=== PATIENT | female | born 1980 | race Caucasian/White ===

== ENCOUNTER 2018-02-12 12:04 | Inpatient (IN) | payer BC ==
[~2018-02-12] VITALS: Ht 172.7 cm; Wt 98.4 kg
--- NOTE | 2018-02-12 12:04 | NUR ---
Patient BIBA to bed 10.
[2018-02-12 12:09] VITALS: BP 142/103
--- NOTE | 2018-02-12 12:09 | NUR ---
REPORT GIVEN TO LINDSAY CEE
[2018-02-12] MEDS ORDERED: NACL 0.9% 1,000 ML IV ONE (12:15)
[2018-02-12] MEDS ORDERED: FLUMAZENIL 0.5 MG/5 ML VIAL IVP ONE (12:15)
--- NOTE | 2018-02-12 12:15 | NUR ---
PT. CAME IN VIA BLS DUE TO TAKING 20-30 XANAX AT HOME. PT. STATES " I TOOK TWO HANDFULLS OF XANAX BECAUSE IN TIRED, IM SICK AND MY DOESNT COME HOME". WHEN ASKED IF SHE WANTED TO TAKE HER LIFE PT. JUST RESPONDED " IM JUST TIRED " AND STARTED CRYING. PT. IS RESPONSIVE, PT. IS AAOX4, PT. HAS EQUAL ROUND AND REACTIVE PUPILS 3MM BILATERALLY. PT. DENIES ANY N/V AT THIS TIME. PT. CAME FROM HOME WHERE SHE STATES SHE LIVES WITH HER MOTHER AND . Declan RAO AWARE. WILL CONTINUE TO MONITOR.
--- NOTE | 2018-02-12 12:28 | NUR ---
CONTACTED VALE AT [facility] [id number] INFORMED WITH UNKNOWN NUMBER OF XANAX PILL TAKEN BY THE PT, ADVISED TO ORDER EKG, LABS, AND MONIOR WHICH HAS ALREADY BEED ORDERED BY DR ORTEGA, WILL CALL BACK FOR FOLLOWUP PER VALE
[2018-02-12 12:41] LABS: BASOPHILS % (AUTO) 0.3 % (0.0-2.0); EOSINOPHILS # (AUTO) 0.1 K/uL (0-0.4); EOSINOPHILS % (AUTO) 2.2 % (0.0-4.0); HEMATOCRIT 42.4 % (36-48); HEMOGLOBIN 14.4 g/dL (12.0-16.0); LYMPHOCYTES # (AUTO) 1.2 K/uL (2.5-16.5); LYMPHOCYTES % (AUTO) 26.7 % (20.5-51.1); MEAN CORPUSCULAR HEMOGLOBIN 30 pg (27-31); MEAN CORPUSCULAR HGB CONC 34 g/dL (33-37); MEAN CORPUSCULAR VOLUME 89.8 fL (80-94); MONOCYTES # (AUTO) 0.4 K/uL (0.8-1.0); NEUTROPHILS # (AUTO) 2.9 K/uL (1.8-7.7); NEUTROPHILS % (AUTO) 62.8 % (42.2-75.2); PLATELET COUNT (AUTO) 259 K/uL (140-450); RED BLOOD CELL COUNT(AUTO) 4.73 MIL/uL (4.20-5.40); RED CELL DISTRIBUTION WIDTH 13.6 % (11.6-13.7); WHITE BLOOD COUNT (AUTO) 4.6 K/uL (4.8-10.8)
--- NOTE | 2018-02-12 12:43 | NUR ---
CALLED [place] [employer]. PROVIDED INFORMATION REGARDING PT. AND INTENTIONAL DRUG OVERDOSE. [place] [employer] STATED THEY WOULD SEND SOMEONE TO TAKE REPORT AND THAT ETA WAS NO KNOWN AT THIS TIME.
--- NOTE | 2018-02-12 12:46 | NUR ---
MOTHER AT BEDSIDE AT THIS TIME
[2018-02-12 13:02] LABS: ANION GAP 11.6 (8-16); CARBON DIOXIDE 26.9 mmol/L (21-32); CHLORIDE 105 mmol/L (98-107); CREATININE 0.9 mg/dL (0.6-1.3); GFR ARICAN-AMERICAN 91 mL/min (>90); GLUCOSE 101 mg/dL (74-106); POTASSIUM 3.5 mmol/L (3.5-5.1); SODIUM SERUM 140 mmol/L (136-145); UREA NITROGEN, BLOOD 6 mg/dL (7-18)
[2018-02-12 13:16] LABS: ALBUMIN 3.8 g/dL (3.4-5.0); ASPARTATE AMINOTRANSFERASE 36 U/L (15-37); TOTAL BILIRUBIN 0.5 mg/dL (0.0-1.0)
[2018-02-12 13:18] LABS: ACETAMINOPHEN < 0.5 ug/ml (10-30); SALICYLATE < 2.8 mg/dL (2.8-20.0)
--- NOTE | 2018-02-12 13:20 | NUR ---
[place] PD CAME, SPOKE TO PATIENT AND DID NOT MEET CRITERIA FOR A HOLD.
[2018-02-12] MEDS ORDERED: ACETAMINOPHEN 325 MG TAB PO PRN (13:50)
[2018-02-12] MEDS ORDERED: MORPHINE SULFATE 2 MG/ML SYR IVP PRN (13:50)
[2018-02-12] MEDS ORDERED: METOCLOPRAMIDE 10 MG/2 ML INJ VIAL IVP PRN (13:50)
--- NOTE | 2018-02-12 14:18 | NUR ---
PT. RESTING COMFORTABLY IN BED, RR EVEN AND UNLABORED. BED IN LOWEST POSITION. MOTHER AT BEDSIDE. VSS. WILL CONTINUE TO MONITOR.
--- NOTE | 2018-02-12 14:20 | NUR ---
RECEIVED REPORT FROM ER NURSE, JAYE, AT BEDSIDE FOR CONTINUITY OF CARE. PATIENT BROUGHT TO FLOOR BY 2 ER NURSES. PATIENT TRANSFERRED HERSELF FROM [facility] TO BED. DIAGNOSED WITH OVERDOSE. PATIENT IS LETHARGIC. PATIENT DENIES PAIN AT THIS TIME. BREATHING EVEN AND UNLABORED ON ROOM AIR. LUNG SOUNDS CLEAR, BOWEL SOUNDS PRESENT. MOTHER ANTONELLA AT BEDSIDE. ORIENTED PATIENT AND MOTHER TO THE ROOM, CALL LIGHT, AND PHONE. UPDATED THE BOARD. VERBALIZED PLAN OF CARE TO PATIENT AND ANTONELLA, THEY VERBALIZED UNDERSTANDING. MRSA SCREENING DONE, INITIAL ASSESSMENT DONE. VITAL SIGNS WNL, SAFETY PRECAUTION IN PLACE, CALL LIGHT WITHIN REACH, WILL CONTINUE TO MONITOR PATIENT.
[2018-02-12 14:30] VITALS: BP 106/67
--- NOTE | 2018-02-12 14:30 | NUR ---
Patient will be admitted to care of DR. PIÑA. Admited to TELE FLOOR . Will go to room 121A. Belongings list completed. Report to LINDSAY YAO .
[2018-02-12] MEDS ORDERED: ACET-8386 PO (14:32)
[2018-02-12] MEDS ORDERED: HYDR200T5 PO (14:32)
[2018-02-12] MEDS ORDERED: ELA10 PO (14:32)
[2018-02-12] MEDS ORDERED: NAPR-54 PO (14:32)
[2018-02-12] MEDS ORDERED: GABA100C PO (14:32)
[2018-02-12] MEDS ORDERED: PAX20 PO (14:32)
[2018-02-12 14:59] LABS: APPEARANCE,URINE CLEAR (CLEAR); BILIRUBIN,URINE NEGATIVE (NEGATIVE); BLOOD, URINE NEGATIVE (NEGATIVE); COLOR,URINE YELLOW (YELLOW); LEUKOCYTE ESTERASE ,URINE NEGATIVE (NEGATIVE); NITRITE, URINE POSITIVE (NEGATIVE); PH,URINE 6.5 (5.0-9.0); UGLUCOSE NEGATIVE (NEGATIVE)
[2018-02-12 15:11] LABS: BARBITURATE, URINE NEG. ng/ml (NEG <=200); BENZODIAZEPINE, URINE POS. ng/mL (NEG <=200); CANNABINOID, URINE NEG. ng/mL (NEG <=50); COCAINE, URINE NEG. ng/mL (NEG <=300); OPIATE, URINE NEG. ng/mL (NEG <=2000); PHENCYCLIDINE SCREEN,URINE NEG. ng/mL (NEG <=25)
--- NOTE | 2018-02-12 15:42 | NUR ---
GELA FROM [facility] CALLED. PATIENT'S CONDITION AND STATUS UPDATED WITH GELA. GELA VERBALIZED UNDERSTANDING AND SAY THAT SHE WILL CALL BACK TOMORROW TO FOLLOW UP.
[2018-02-12] MEDS: NACL 0.9% 1,000 ML IV SCH (15:50)
[2018-02-12 16:00] VITALS: BP 109/69
--- NOTE | 2018-02-12 16:40 | NUR ---
CALLED DR. ARAIZA FOR CONSULT FOR PATIENT, NO ANSWER, LEFT VOICEMAIL. ALSO FAXED FACE [facility]. WILL AWAIT FOR THEIR CALL BACK.
--- NOTE | 2018-02-12 17:15 | NUR ---
DR. SUAREZ IN TO SEE THE PATIENT. PATIENT WAS LETHARGIC AND AOX2, SLOW TO ANSWER QUESTIONS. THE DOCTOR SAID HE WILL BE BACK TOMORROW WHEN SHE IS MORE AWAKE TO EVALUATE HER. PATIENT RESTING IN BED, NO SIGNS OF DISTRESS OR SOB NOTED. PATIENT DENIES PAIN. SAFETY PRECAUTION IN PLACE, CALL LIGHT WITHIN REACH. WILL CONTINUE TO MONITOR PATIENT.
--- NOTE | 2018-02-12 18:20 | NUR ---
PATIENT SLEEPING, NO SIGNS OF DISTRESS OR SOB NOTED. FLACC-0. MOTHER ANTONELLA AT BEDSIDE. SAFETY PRECAUTION IN PLACE, CALL LIGHT WITHIN REACH. WILL CONTINUE TO MONITOR PATIENT.
--- NOTE | 2018-02-12 19:21 | NUR ---
REPORT GIVEN TO RADIO MECHANIC NURSE AT BEDSIDE FOR CONTINUITY OF CARE. PATIENT IN STABLE CONDITION. STILL ASLEEP.
--- NOTE | 2018-02-12 19:22 | NUR ---
RECEIVED BEDSIDE REPORT FROM DAY SHIFT NURSE MAXIMILIAN RN, PT STABLE, NO DISTRESS NOTED, IV TO R HAND 20G RUNNING NS @ 100ML/HR, INFUSING WELL, PT ON ROOM AIR NO SOB, FAMILY BY BEDSIDE, PT SLEEPING, CALL LIGHT WITHIN REACH, WILL CONTINUE TO MONITOR.
[2018-02-12 20:00] VITALS: BP 108/80
--- NOTE | 2018-02-12 20:02 | NUR ---
PT AWAKE, ALERT, NO DISTRESS NOTED, PT SITTING UP, EATING DINNER, TOLERATED WELL, CALL LIGHT WITHIN REACH, WILL CONTINUE TO MONITOR.
[2018-02-12 21:27] VITALS: BP 108/80
--- NOTE | 2018-02-12 22:30 | NUR ---
CHECKED ON PT, PT SLEEPING, NO DISTRESS NOTED, CALL LIGHT WITHIN REACH, WILL CONTINUE TO MONITOR.
--- NOTE | 2018-02-12 23:45 | NUR ---
CHECKED ON PT, PT SLEEPING, NO DISTRESS NOTED, V/S TAKEN, WNL, CALL LIGHT WITHIN REACH, WILL CONTINUE TO MONITOR.
[2018-02-13] VITALS: BP 103/70
--- NOTE | 2018-02-13 02:18 | NUR ---
PT SLEEPING, NO DISTRESS NOTED, CALL LIGHT WITHIN REACH, WILL CONTINUE TO MONITOR.
[2018-02-13] MEDS: NACL 0.9% 1,000 ML IV SCH ×2 (03:45→09:47)
[2018-02-13 04:00] VITALS: BP 103/63
[2018-02-13 06:14] LABS: BASOPHILS % (AUTO) 0.5 % (0.0-2.0); EOSINOPHILS # (AUTO) 0.2 K/uL (0-0.4); EOSINOPHILS % (AUTO) 3.3 % (0.0-4.0); HEMATOCRIT 39.3 % (36-48); HEMOGLOBIN 13.1 g/dL (12.0-16.0); LYMPHOCYTES % (AUTO) 38.7 % (20.5-51.1); MEAN CORPUSCULAR HEMOGLOBIN 30 pg (27-31); MEAN CORPUSCULAR HGB CONC 33 g/dL (33-37); MEAN CORPUSCULAR VOLUME 90.3 fL (80-94); MONOCYTES # (AUTO) 0.5 K/uL (0.8-1.0); MONOCYTES % (AUTO) 9.2 % (1.7-9.3); NEUTROPHILS # (AUTO) 2.5 K/uL (1.8-7.7); NEUTROPHILS % (AUTO) 48.3 % (42.2-75.2); PLATELET COUNT (AUTO) 225 K/uL (140-450); RED BLOOD CELL COUNT(AUTO) 4.35 MIL/uL (4.20-5.40); RED CELL DISTRIBUTION WIDTH 13.4 % (11.6-13.7); WHITE BLOOD COUNT (AUTO) 5.1 K/uL (4.8-10.8)
--- NOTE | 2018-02-13 06:40 | NUR ---
PATIENT HAS BEEN SCREENED AND CATEGORIZED LOW NUTRITION RISK. PATIENT WILL BE SEEN WITHIN 7 DAYS OF ADMISSION. 02/19/18 ANNELIESE WILLIS MS, RDN
[2018-02-13 06:58] LABS: ALBUMIN 3.1 g/dL (3.4-5.0); CREATININE 0.8 mg/dL (0.6-1.3); TOTAL BILIRUBIN 0.3 mg/dL (0.0-1.0)
[2018-02-13 07:02] LABS: ANION GAP 5.6 (8-16); CARBON DIOXIDE 27.8 mmol/L (21-32); POTASSIUM 3.4 mmol/L (3.5-5.1)
--- NOTE | 2018-02-13 07:22 | NUR ---
ENDORSED PLAN OF CARE TO DAY SHIFT NURSE KY RN, PT STABLE, NO DISTRESS NOTED, CALL LIGHT WITHIN REACH.
--- NOTE | 2018-02-13 07:23 | NUR ---
RECEIVED BEDSIDE REPORT FROM DIRECTOR PROCESS NURSE AT BEDSIDE FOR CONTINUITY OF CARE, PT ASLEEP BUT AROUSABLE, NO DISTRESS NOTED, IV TO R HAND 20G, INTACT, PATENT, AND ASYMPTOMATIC, RUNNING NS @ 100ML/HR, INFUSING WELL, PT ON ROOM AIR NO SOB, PATIENT DENIES PAIN. SAFETY PRECAUTION IN PLACE, CALL LIGHT WITHIN REACH, WILL CONTINUE TO MONITOR PATIENT.
--- NOTE | 2018-02-13 07:32 | NUR ---
PATIENT HAD NOT VOIDED SINCE ADMITTED YESTERDAY 02/12/2018 AT 1420. TENTERING MACHINE FEEDER RN, JAYDEN, PERFORMED BLADDER SCAN, 548 ML OF URINE PRESENT. ENCOURAGE PATIENT TO AMBULATE AND VOID, OFFERED BEDPAN. PATIENT STATED THAT SHE DID NOT "FEEL LIKE PEEING", SHE DID NOT HAVE THE "URGE". EXPLAINED TO PATIENT THE CONSEQUENCES OF NOT PEEING, PATIENT VERBALIZED UNDERSTANDING BUT AGAIN STATED THAT SHE DOES NOT HAVE THE URGE TO PEE. PAGED DR. PIÑA, DR. PIÑA CALLED BACK, INFORMED HER OF PATIENT'S CONDITION, NEW ORDER IN FOR STRAIGHT CANCERIZATION.
--- NOTE | 2018-02-13 07:45 | NUR ---
INFORMED PATIENT ABOUT NEW ORDER FOR STRAIGHT CATH, PATIENT VERBALIZED UNDERSTANDING. PATIENT CURRENTLY EATING BREAKFAST, ENCOURAGE PATIENT TO TRY TO AMBULATE TO BATHROOM TO VOID AFTER BREAKFAST OR STRAIGHT CATH WILL BE DONE. PATIENT VERBALIZED UNDERSTANDING. PATIENT SITTING UP IN BED EATING BREAKFAST, NO SIGNS OF DISTRESS OR SOB NOTED ON ROOM AIR. PATIENT DENIES PAIN, SAFETY PRECAUTION IN PLACE, CALL LIGHT WITHIN REACH, WILL CONTINUE TO MONITOR PATIENT.
[2018-02-13 08:00] VITALS: BP 109/78
--- NOTE | 2018-02-13 08:24 | NUR ---
ORDERED MEDICATION GIVEN. PATIENT TOLERATED IT WELL. ENCOURAGED PATIENT TO AMBULATE TO BATHROOM TO VOID. PATIENT VERBALIZED UNDERSTANDING. PATIENT AMBULATED TO BATHROOM ON SLOW BUT STEADY GAIT WITH RN BY SIDE FOR STANDBY ASSIST. PATIENT VOIDED. PATIENT DESCRIBED URINE "ORANGE". ORAL CARE GIVEN. PATIENT PERFORMING AM CARE. PATIENT NOW RESTING BACK IN BED, NO SIGNS OF DISTRESS OR SOB NOTED. PATIENT DENIES PAIN. SAFETY PRECAUTION IN PLACE, CALL LIGHT WITHIN REACH, WILL CONTINUE TO MONITOR PATIENT.
[2018-02-13] MEDS ORDERED: ENOXAPARIN 40 MG/0.4 ML SYR SUBQ SCH (09:00)
--- NOTE | 2018-02-13 09:38 | NUR ---
PATIENT'S MOTHER, ANTONELLA, IN TO SEE HER. UPDATED HER ON PATIENT'S CONDITION AND STATUS. ANTONELLA VERBALIZED UNDERSTANDING.
--- NOTE | 2018-02-13 09:58 | NUR ---
LEANDRO FROM [facility]ISON [facility] CALLED. UPDATED HIM ON PATIENT'S STATUS AND CONDITION TODAY. HE VERBALIZED UNDERSTANDING AND WILL FOLLOW UP TOMORROW. RN VERBALIZED UNDERSTANDING.
--- NOTE | 2018-02-13 10:40 | NUR ---
PATIENT AMBULATED IN ROOM. PATIENT AGITATED BECAUSE SHE CANNOT CONTACT HER VIA PHONE. PATIENT NOW BACK IN BED, BREATHING EVEN AND UNLABORED. DENIES PAIN. SAFETY PRECAUTION IN PLACE, CALL LIGHT WITHIN REACH. WILL CONTINUE TO MONITOR PATIENT.
--- NOTE | 2018-02-13 11:30 | NUR ---
PATIENT'S MOTHER, ANTONELLA, AT BEDSIDE, PATIENT UPSET WITH HER AND ASKED HER TO LEAVE. PATIENT NOW RESTING, TRYING TO CALL HER ON PHONE. SAFETY PRECAUTION IN PLACE, CALL LIGHT WITHIN REACH, WILL CONTINUE TO MONITOR PATIENT.
[2018-02-13 12:00] VITALS: BP 112/76
--- NOTE | 2018-02-13 13:30 | NUR ---
PATIENT'S MOTHER, ANTONELLA, AT BEDSIDE. PATIENT UPSET AND CRYING BECAUSE HAS NOT BEEN BY TO SEE HER. BREATHING EVEN AND UNLABORED. PATIENT DENIES PAIN. SAFETY PRECAUTION IN PLACE, CALL LIGHT WITHIN REACH. WILL CONTINUE TO MONITOR PATIENT.
--- NOTE | 2018-02-13 15:12 | NUR ---
DR. PIÑA AND DR. EDDY IN TO SEE THE PATIENT. THE PATIENT REFUSED TO PARTICIPATE SO DR. EDDY COULD NOT DO AN EVALUATION. NEW DISCHARGE ORDER IN FROM DR. PIÑA, INFORMED PATIENT AND HER MOTHER ANTONELLA. THEY VERBALIZED UNDERSTANDING.
--- NOTE | 2018-02-13 15:55 | NUR ---
PATIENT AMBULATED OFF THE FLOOR ACCOMPANIED BY RN. PATIENT REFUSED WHEELCHAIR, PATIENT UPSET WITH MOTHER ANTONELLA AND DID NOT WANT TO GO HOME WITH HER. AFTER SPEAKING TO PATIENT ABOUT BENEFITS OF GOING HOME AND GETTING BETTER, PATIENT VERBALIZED UNDERSTANDING AND CALMED DOWN. PATIENT TOOK ALL HER BELONGINGS WITH HER. PATIENT IN STABLE CONDITION.
--- NOTE | 2018-02-16 08:57 | NUR ---
[place]TRO ER REPORT, H&P, AND [place] [facility] [phone] PHONE ANTONELLA [phone]
== END 2018-02-13 15:55 | disposition home or self-care (01) | DRG 918 ==
LOC: MED 12:04 → MTU 13:47
PROVIDERS: ADMIT Hospitalist; ATTEND Hospitalist
DX: T42.4X1A Poisoning by benzodiazepines, accidental (unintentional), initial encounter (principal); M32.9 Systemic lupus erythematosus, unspecified; F32.9 Major depressive disorder, single episode, unspecified; F41.9 Anxiety disorder, unspecified; M79.7 Fibromyalgia; G89.4 Chronic pain syndrome; M06.9 Rheumatoid arthritis, unspecified; Y92.89 Other specified places as the place of occurrence of the external cause
CPT/HCPCS: 36415; 71045; 80053; 80305; 81003; 82550; 84484; 85025; 87081; 93005; 96361; 96374; 99285; C1758; G0480; G0482; J1650; J3490; J7030; Q0092